=== PATIENT | male | born 1965 | race Caucasian/White ===

== ENCOUNTER 2016-07-31 12:23 | Emergency (ER) ==
[2016-07-31 12:47] VITALS: BP 200/111
--- NOTE | 2016-07-31 13:59 | PROVIDER DOCUMENTATION ---
HPI-Rash/Wound/ReCheck - General Source: patient <Conchita Arthur - Last Filed: 07/31/16 15:17> - General Source: patient - History of Present Illness-Dermatology Location: reports: feet (left) Quality: reports: painful Severity: reports: moderate Onset/Duration: reports: other (worse the past month) Timing: reports: still present, getting worse Context/Associated Symptoms: reports: denies symptoms Identifiable cause?: No Exposure: reports: unknown cause Similar Symptoms Previously?: Yes Recently seen or treated by another doctor?: No <Misti Lobo - Last Filed: 07/31/16 16:43> - General Chief Complaint: Sores/Lesions Stated Complaint: EXTREMITY PAIN Time Seen by Provider: 07/31/16 13:57 Allergies/Adverse Reactions: Allergies Allergy/AdvReac Type Severity Reaction Status Date / Time No Known Allergies Allergy Verified 03/06/16 14:47 Home Medications: Home Medication List Medication Instructions Recorded Confirmed Last Taken Type Metoprolol [Lopressor] 50 mg PO DAILY 03/06/16 03/08/16 03/05/16 09:00 History Paroxetine HCl [Paxil] 1 tab PO DAILY 03/07/16 03/07/16 02/06/16 09:00 History - History of Present Illness-Dermatology Nature of Presenting Problem: 51 yo male presents to ER with c/o wound to left great toe that has been on and off since last November. He had truck trouble and had to walk for 7 miles in flip flops. He did have a worse wound on right foot but it healed. He was referred to wound clinic in March 2016 but he could not afford it. (Misti Lobo) Review of Systems - Adult - REVIEW OF SYSTEMS - ADULT Constitutional: reports: no symptoms reported Eyes: reports: no symptoms reported Ears, Nose, Mouth & Throat: reports: no symptoms reported Cardiovascular: reports: no symptoms reported Respiratory: reports: no symptoms reported Gastrointestinal: reports: no symptoms reported Genitourinary: reports: no symptoms reported Musculoskeletal: reports: no symptoms reported Integumentary: reports: see HPI, skin sores/ulcer Neurological: reports: no symptoms reported Psychiatric: reports: no symptoms reported Endocrine: reports: no symptoms reported Hematologic/Lymphatic: reports: no symptoms reported Allergic/Immunologic: reports: no symptoms reported All Other Systems: Reviewed and Negative <Misti LoboDafne - Last Filed: 07/31/16 16:43> Past History - Adult - PAST MEDICAL HISTORY-ADULT Review of Records: reports: Nursing Assessment Review, Medications Reviewed Major Childhood Illnesses: reports: denies history Cardiovascular: reports: HTN Respiratory: reports: denies history Gastrointestinal: reports: denies history Musculoskeletal: reports: denies history Neurological: reports: denies history Endocrine/Immune: reports: Diabetes - PRIOR SURGERIES/PROCEDURES Surgical/Procedure History: reports: none - IMMUNIZATION STATUS Childhood Immunizations: See Nurse Assessment Flu Vaccine: See Nurse Assessment <Conchita Arthur - Last Filed: 07/31/16 15:17> - PAST MEDICAL HISTORY-ADULT Review of Records: reports: Old Records Reviewed, Nursing Assessment Review, Medications Reviewed, Social history reviewed & non-contributory. Cardiovascular: reports: HTN Endocrine/Immune: reports: Diabetes (hx) - PRIOR SURGERIES/PROCEDURES Surgical/Procedure History: reports: reviewed, not pertinent - IMMUNIZATION STATUS Childhood Immunizations: See Nurse Assessment Flu Vaccine: See Nurse Assessment - SOCIAL HISTORY Smoking: quit greater than 1 year Substance Use: denies Alcohol Use Frequency: occasionally Living Situation: family <YamilSeptember - Last Filed: 07/31/16 16:43> Physical Exam-General - PHYSICAL EXAM-ADULT Initial Vital Signs Reviewed: Yes - CONSTITUTIONAL General Appearance: appears well, alert, no apparent distress - EYES Eyes: PERRL/EOMI - HEAD, EARS, NOSE, MOUTH & THROAT HENMT: normocephalic/atraumatic - RESPIRATORY Respiratory: no respiratory distress - CARDIOVASCULAR Cardiovascular: normal peripheral pulses - MUSCULOSKELETAL Extremity: erythema (mild), swelling (to left foot), tenderness Peripheral Pulses: dorsalis-pedis (L): 2+ - SKIN Integumentary: tenderness, other (calloused area on plantar surface of left toe) - NEUROLOGIC Neurologic: grossly normal - PSYCHIATRIC Psych/Mental Status: normal mood/affect, normal thought content, normal thought process, oriented x 3 <YamilSeptemberDafne - Last Filed: 07/31/16 16:43> Progress - XRAY 1 XRAY: Left XRAY Study: Foot Impression: Normal (no acute bony injury, per radiologist) <Conchita Arthur - Last Filed: 07/31/16 15:17> <Misti Lobo - Last Filed: 07/31/16 16:43> - PLAN OF CARE/RESULTS Progress/Plan/Lab Results: Dr. Prince at bedside - trimmed side of callus on L great toe (Conchita Arthur) 1500-Discussed patient case and reviewed labs with Dr. Prince he assessed patient at bedside and trimmed calloused area. 1515-Discussed results/dx/tx/discharge and follow up instructions with patient; he verbalized understanding. Laboratory Tests 07/31/16 07/31/16 14:15 14:15 WBC 5.71 RBC 4.22 L Hgb 13.8 L Hct 40.5 L MCV 96.0 MCH 32.7 H MCHC 34.1 RDW Std Deviation 13.4 Plt Count 134 MPV 11.4 H Immature Gran % (Auto) 0.2 Neut % (Auto) 69.6 Lymph % (Auto) 13.0 L [place] % (Auto) 12.6 H Eos % (Auto) 3.7 Baso % (Auto) 0.9 H Immature Gran # (Auto) 0.01 Neut # (Auto) 3.98 Lymph # (Auto) 0.74 L [place] # (Auto) 0.72 H Eos # (Auto) 0.21 Baso # (Auto) 0.05 Sodium 137 Potassium 3.7 Chloride 106 Carbon Dioxide 24 L Anion Gap 8 BUN 9 Creatinine 0.8 Estimated GFR/1.73 m2 > 60 BUN/Creatinine Ratio 11 Glucose 123 H Calculated Osmolality 274 Calcium 8.4 L Total Bilirubin 2.20 H AST 60 H ALT 22 Alkaline Phosphatase 151 H Total Protein 7.0 Albumin 3.1 L Globulin 4.0 Albumin/Globulin Ratio 1.0 Orders Category Date Time Status Dressing change DIRECTED Care 07/31/16 15:22 Active FOOT COMPLETE LEFT [RAD] Stat Exams 07/31/16 14:04 Draft CBC WITH ELECTRONIC DIFF [HEME] Stat Lab 07/31/16 14:15 Completed COMPREHENSIVE METABOLIC PANEL [CHEM] Stat Lab 07/31/16 14:15 Completed Vital Signs - 24 hr 07/31/16 12:42 Pulse Rate 93 H Respiratory 18 Rate Blood Pressure 200/111 O2 Sat by Pulse 98 Oximetry (Misti Lobo) Departure <Conchita Arthur - Last Filed: 07/31/16 15:17> - Departure Time of Disposition Order: 15:23 Certified Medical Emergency: Emergent <Misti Lobo - Last Filed: 07/31/16 16:43> - Departure DIAGNOSIS: Callus of foot Disposition: HOME 01 Condition: Good Additional Instructions: Follow up with a primary care doctor. Wash with hibacleanz. Keep dry and cover when walking. Wear shoes on sheet given to you. ED Follow Up Instructions: You have been treated by a care provider in the Emergency Department. These instructions are being provided to you so you can have an understanding of how to care for yourself upon discharge. Upon discharge from the Emergency Department, you are responsible for making arrangements for follow-up care by a physician of your choice. Take all prescribed medications as directed. Return to the Emergency Department immediately for any new or worsening symptoms. You may call the Physician Referral phone number at [phone] to obtain a list of Physicians who are taking new patients. Referrals: None,PCP [Primary Care Provider] - Sara Borrero MD [STAFF PHYSICIAN] - Forms: Return to School/Parent Work Attestation - Scribe Verification/Attestation Scribe:: Conchita Arthur Acting as Scribe for:: Misti Lobo Scribe documention review:: This chart was documented by a scribe and accurately reflects the service the provider performed and the decisions made by the provider. <Conchita Arthur - Last Filed: 07/31/16 15:17> - Physician/ CHELE Attestation Patient care was provided by Advanced Practice Provider:: Yes Advanced Practice Provider:: Misti Lobo Advanced Practice Provider documentation review:: The Mid-level provider documentation, treatment plan and medical decision making was reviewed by the physician who agrees with all treatment and medical decision making by the P. <Misti Lobo - Last Filed: 07/31/16 16:43> Physician Attestation - Physician Attestation I, the provider, attest to the following statement:: Misti Lobo Physician documentation Attestation:: This documentation recorded by the scribe accurately reflects the service I personally performed and the decisions made by me. <Misti Lobo - Last Filed: 07/31/16 16:43>
[2016-07-31 14:26] LABS: MANUAL DIFF NEEDED? NO
[2016-07-31 14:27] LABS: BASO% 0.9 % (0.0-0.8); EOS# 0.21 X1000 (0.0-0.7); EOS% 3.7 % (0.0-10.0); HEMATOCRIT 40.5 % (42.0-52.0); HEMOGLOBIN 13.8 g/dL (14.0-18.0); IMM GRAN# 0.01 X1000 (0.0-0.04); IMM GRAN% 0.2 % (0.0-0.5); LYMPH# 0.74 X1000 (1.2-3.4); MCH 32.7 PG (27-31); MCHC 34.1 g/dL (33-37); MONO# 0.72 X1000 (0.11-0.59); MONO% 12.6 % (1.7-9.3); MPV 11.4 FL (7.4-10.4); NEUT% 69.6 % (42.2-75.2); PLT 134 X1000 (130-400); RBC 4.22 XMIL (4.7-6.1)
[2016-07-31 14:46] LABS: AGAP 8; ALBUMIN 3.1 g/dL (3.5-5.0); ALKALINE PHOSPHATASE 151 U/L (32-122); BUN 9 mg/dL (8-22); CALCIUM 8.4 mg/dL (8.8-10.2); CHLORIDE 106 mmol/L (98-107); COSMO 274; GOT 60 U/L (10-34); GPT 22 U/L (10-44); POTASSIUM 3.7 mmol/L (3.5-5.1); SODIUM 137 mmol/L (136-145); TCO2 24 mmol/L (25-35)
--- NOTE | 2016-07-31 16:06 | Diag Imaging Result Document ---
PROCEDURE NAME: FOOT COMPLETE LEFT - 07/31/2016 LEFT FOOT 3 VIEWS: FINDINGS: There is plantar spurring of the calcaneus. There is there is no evidence of fracture, dislocation, periosteal reaction or lysis is present. IMPRESSION: No acute bony disease.
== END 2016-07-31 15:47 | disposition home or self-care (01) ==
LOC: P.ED 12:23
DX: L84 Corns and callosities (principal); M79.675 Pain in left toe(s); I10 Essential (primary) hypertension; E11.9 Type 2 diabetes mellitus without complications; Z87.891 Personal history of nicotine dependence
CPT/HCPCS: 80053; 85025; 99283